=== PATIENT | male | born 1980 | race Caucasian/White ===

== ENCOUNTER 2023-03-06 08:39 | Outpatient (RCR) | payer MEDICAID, SELFPAY | END 2023-03-22 23:59 | disposition home or self-care (01) | LOC: INF 08:39 | PROVIDERS: PCP Family Medicine; Visit Provider Internal Medicine Hematology & Oncology | DX: D72.829 Elevated white blood cell count, unspecified (principal); Z72.0 Tobacco use; Z99.3 Dependence on wheelchair; G70.9 Myoneural disorder, unspecified | CPT/HCPCS: G0463 ==

== ENCOUNTER 2023-06-05 07:33 | Outpatient (RCR) | payer MEDICAID, SELFPAY ==
[2023-05-24 11:15] VITALS: BP 149/83; PULSE 98; RESP 18; TEMP 35.9; O2SAT 98
--- NOTE | 2023-05-24 12:22 | PC.NURSE ---
Patient is here for therapeutic phlebotomy, his vitals are stable, we removed 500ml and he tolerated well. He was discharged home via wheelchair.
== END 2023-06-21 23:59 | disposition home or self-care (01) ==
LOC: INF 07:33
PROVIDERS: PCP Family Medicine; Visit Provider Internal Medicine Hematology & Oncology
DX: D72.829 Elevated white blood cell count, unspecified (principal); D75.1 Secondary polycythemia
CPT/HCPCS: 99195; G0463